=== PATIENT | male | born 1995 | race Caucasian/White ===

== ENCOUNTER 2024-02-23 16:46 | Emergency (ER) | payer OTHER ==
[2024-02-23] MEDS ORDERED: Sulfamethoxazole/Trimethoprim 800-160 MG Tab PO ONE (17:41)
[2024-02-23] MEDS: Cephalexin 500 MG Cap PO ONE (17:50)
== END 2024-02-23 18:00 | disposition home or self-care (01) ==
LOC: FB.ED 16:46
DX: S01.441A Puncture wound with foreign body of right cheek and temporomandibular area, initial encounter (principal); S60.451A Superficial foreign body of left index finger, initial encounter; F17.290 Nicotine dependence, other tobacco product, uncomplicated; Z88.0 Allergy status to penicillin; Z88.8 Allergy status to other drugs, medicaments and biological substances; W45.8XXA Other foreign body or object entering through skin, initial encounter
CPT/HCPCS: 10120; 70360; 99283; A9270